=== PATIENT | male | born 1980 | race Caucasian/White ===

== ENCOUNTER 2024-01-13 08:07 | Emergency (ER) | payer MEDICAID ==
[~2024-01-13] VITALS: Ht 172.7 cm; Wt 117.9 kg
[2024-01-13 08:16] VITALS: BP_SYST 123; PULSE 97; RESP 16; TEMP 97; O2SAT 97
[2024-01-13 08:46] LABS: BASOPHILS # (AUTO) 0.1 K/uL (0.0-0.2); BASOPHILS % (AUTO) 0.7 % (0.0-2.0); EOSINOPHILS # (AUTO) 0.1 K/uL (0.0-0.4); EOSINOPHILS % (AUTO) 1.8 % (0.0-4.0); HEMATOCRIT 46.5 % (36-54); HEMOGLOBIN 15.4 g/dL (14.0-18.0); LYMPHOCYTES % (AUTO) 25.6 % (20.5-51.5); MEAN CORPUSCULAR HEMOGLOBIN 27 pg (27-31); MEAN CORPUSCULAR HGB CONC 33 % (32-36); MEAN CORPUSCULAR VOLUME 82 fL (79.0-98.0); MONOCYTES # (AUTO) 0.5 K/uL (0.0-1.0); MONOCYTES % (AUTO) 6.5 % (1.7-9.3); NEUTROPHILS % (AUTO) 65.4 % (40.0-70.0); PLATELET COUNT (AUTO) 195 K/uL (130-430); RED BLOOD CELL COUNT(AUTO) 5.67 MIL/uL (4.2-6.2); RED CELL DISTRIBUTION WIDTH 13.6 % (9.0-15.0); WHITE BLOOD COUNT (AUTO) 7.7 K/uL (4.8-10.8)
[2024-01-13 09:11] LABS: PROTHROMBIN TIME 10.7 SECS (9.5-12.5)
[2024-01-13 09:15] LABS: ANION GAP 6 (5-15); CARBON DIOXIDE 30 mmol/L (23-29); CHLORIDE 108 mmol/L (98-107); GLUCOSE 108 mg/dL (74-106); POTASSIUM 4.7 mmol/L (3.5-5.1); SODIUM SERUM 144 mmol/L (136-145); UREA NITROGEN, BLOOD 11 mg/dL (8-21)
[2024-01-13 09:16] LABS: CREATININE 0.89 mg/dL (0.55-1.30); GFR AFRICAN AMERICAN 120 mL/min (>90); GFR NON AFRICAN-AMERICAN 99 mL/min (>90)
[2024-01-13] MEDS ORDERED: OMEP20CA15 PO (10:12)
[2024-01-13 10:23] VITALS: BP_SYST 138; PULSE 77; RESP 18; TEMP 98.1; O2SAT 95
== END 2024-01-13 10:20 | disposition home or self-care (01) ==
LOC: SED 08:07
DX: R07.89 Other chest pain (principal)
CPT/HCPCS: 36415; 71045; 80048; 84484; 85025; 85610; 85730; 93005; 99285